=== PATIENT | male | born 1990 | race Caucasian/White ===

== ENCOUNTER 2018-09-25 10:16 | Outpatient (CLI) | payer BC ==
[2018-09-25 11:04] LABS: #Basophils 0.1 thou/uL (0.0-0.2); #Eosinphils 0.3 thou/uL (0.0-0.7); #Monocytes 0.7 thou/uL (0.11-0.59); #Neutrophils 3.4 thou/uL (1.40-6.50); %Eosinophils 5.3 % (0.0-10.0); %Lymphocytes 30.6 % (21.0-51.0); %Monocytes 10.4 % (0.0-10.0); %Neutrophils 52.6 % (42.0-75.0); Hemoglobin 14.9 g/dL (14.0-18.0); Mean Corpuscular HGB CONC 33.2 g/dL (32.0-36.0); Mean Corpuscular Hemoglobin 29.6 pg (27.0-31.0); Mean Platelet Volume 7.7 fL (7.4-10.4); Platelet Count 273 thou/uL (130-400); RBC Distribution Width 11.5 % (11.5-14.5); Red Blood Cell (RBC) Count 5.05 mill/uL (4.70-6.10); White Blood Cell (WBC) Count 6.5 thou/uL (4.8-10.8)
== END 2018-09-25 10:17 | disposition home or self-care (01) ==
LOC: LABBT 10:16
PROVIDERS: ATTEND Surgery
DX: Z01.812 Encounter for preprocedural laboratory examination (principal); K40.20 Bilateral inguinal hernia, without obstruction or gangrene, not specified as recurrent
CPT/HCPCS: 85025

== ENCOUNTER 2018-09-30 06:09 | Day surgery (SDC) | payer BC ==
[2018-09-25 10:31] VITALS: BMI 28.8
[2018-09-30] MEDS ORDERED: Bupivacaine/Epinephrine 0.25% 30 ML VIAL ONE (06:47)
[2018-09-30] MEDS ORDERED: CEFAZOLIN 2 GM/50 ML BAG ONE (07:15)
--- NOTE | 2018-09-30 07:21 | HP ---
CHIEF COMPLAINT: Bilateral inguinal hernia. HISTORY: This is a 28-year-old male who has been having right groin pain. He had ultrasound showing bilateral inguinal hernia. PAST MEDICAL HISTORY: Otherwise healthy. PAST SURGICAL HISTORY: Lasik. MEDICATIONS: No medications. ALLERGIES: No known drug allergies. SOCIAL HISTORY: No tobacco, occasional alcohol. PHYSICAL EXAMINATION: VITAL SIGNS: Height 74, weight 230, body mass index 29.5, blood pressure 135/93, pulse 64. GENERAL: Well-developed, well-nourished male in no apparent distress. HEENT: Unremarkable. LUNGS: Clear. HEART: Regular rate and rhythm. ABDOMEN: Soft, nontender, good bowel sounds, no masses. He has bilateral inguinal hernias. EXTREMITIES: Good pulses. No pedal edema. ASSESSMENT: Bilateral inguinal hernias. PLAN: Laparoscopic robotic assisted bilateral inguinal hernia repair with mesh. CONSENT: I have discussed the planned procedure as well as risk of bleeding, infection, recurrence. He understands and gives informed consent.
[2018-09-30] MEDS ORDERED: Fentanyl 250 MCG/5 ML VIAL ONE (07:27)
[2018-09-30] MEDS ORDERED: Midazolam HCl 2 mg/2 ml Vial ONE (07:27)
[2018-09-30] MEDS ORDERED: Fentanyl 100 MCG/2 ML VIAL ONE ×2 (09:51→10:36)
--- NOTE | 2018-09-30 10:33 | OP ---
DATE OF SERVICE: 09/30/2018 PREOPERATIVE DIAGNOSIS: Bilateral inguinal hernia. SURGEON: Romeo Umaña M.D. PROCEDURE PERFORMED: Laparoscopic robotic assisted bilateral inguinal hernia repair with mesh. INDICATIONS: A 28-year-old male who was having groin pain, had a scan that showed bilateral inguinal hernias, found to have what appeared to be bilateral inguinal hernias on exam. FINDINGS: Bilateral inguinal hernias. PROCEDURE: After informed consent was obtained, the patient was taken to the operating room and give n general endotracheal anesthesia, placed in the supine position. The abdomen was prepped and draped in usual fashion. Local anesthesia infiltrated subcutaneously and deep. A supraumbilical incision was performed. The subcu divided sharply. The fascia grasped and an incision made. Digital palpati on revealed no local adhesions. A blunt 12 mm trocar inserted. Pneumoperitoneum was created to a pr essure of 15 mmHg. A 30 degree laparoscope inserted under direct vision. Under direct vision, two 8 mm ports were placed just lateral to the rectus muscle bilateral. The patient then placed in [place] position and the robot was docked. I went to the console and started on the left side, the p eritoneum was opened from median umbilical ligament laterally and a subperitoneal plane developed usi ng blunt and sharp dissection. The spermatic cord and vessels were dissected out. A small indirect hernia was reduced. A medium mesh was inserted and placed into its pocket. Then the right side was approached. Again, the peritoneum was opened from median umbilical ligament laterally. A subperiton eal plane developed. The hernia was dissected out and the indirect sac was reduced. The left-sided mesh was then inserted into the pocket and using a 2-0 silk suture was secured to the pubic tubercle intracorporeally. Then the mesh was attached to the anterior abdominal wall just medial to the epiga stric vessel with a 2-0 silk suture. The left side was also sutured to the pubic tubercle with a 2-0 silk suture then to the abdominal wall with a silk anteriorly. Then the peritoneum was closed later al to medial with a 2-0 V-Loc PDS suture. Hemostasis was assured. Trocars and retractors removed. All needles were retrieved. The fascia closed with interrupted 0 Vicryl suture. The skin closed wit h interrupted 4-0 Rapide. Dermabond applied. The patient tolerated the procedure well and was trans ferred to recovery in good condition. Sponge and needle count verified correct x2.
[2018-09-30] MEDS ORDERED: Promethazine HCl 25 MG/ML VIAL ONE (11:52)
[2018-09-30] MEDS ORDERED: Succinylcholine Chloride 20 MG/ML 10 ml SYRINGE FS ONE (17:14)
[2018-09-30] MEDS ORDERED: Glycopyrrolate 0.2 MG/ML 5 ML SYRINGE ONE (17:14)
[2018-09-30] MEDS ORDERED: Ketorolac Tromethamine 30 MG/ML VIAL ONE (17:14)
[2018-09-30] MEDS ORDERED: Vecuronium 10 MG VIAL ONE (17:14)
[2018-09-30] MEDS ORDERED: PROPOFOL 200 MG/20 ML VIAL ONE (17:14)
[2018-09-30] MEDS ORDERED: Dexamethasone 20 MG/5 ML VIAL ONE (17:14)
[2018-09-30] MEDS ORDERED: Lidocaine 1% PF 5 ML VIAL ONE (17:14)
[2018-09-30] MEDS ORDERED: Ondansetron PF 4 MG/2 ML Vial ONE (17:14)
== END 2018-09-30 13:05 | disposition home or self-care (01) ==
LOC: SDC 06:09
PROVIDERS: ATTEND Surgery
PROC: 0YUA4JZ Supplement Bilateral Inguinal Region with Synthetic Substitute, Percutaneous Endoscopic Approach (ICD-10-PCS; principal; 2018-09-30)
DX: K40.20 Bilateral inguinal hernia, without obstruction or gangrene, not specified as recurrent (principal); Z88.8 Allergy status to other drugs, medicaments and biological substances
CPT/HCPCS: 96374; 96375; 96376; C1781; J1100; J1885; J2001; J2250; J2405; J2550; J2704; J3010

== ENCOUNTER 2018-10-21 13:33 | Outpatient (CLI) | payer BC ==
--- NOTE | 2018-10-21 16:35 | ULT ---
TESTICULAR ULTRASOUND: Date: 10/21/18 HISTORY: Testicular pain. Bilateral hernia repair 3 weeks ago. Right-sided testicular swelling and pain. COMPARISON: None. TECHNIQUE: Colvin scale, color flow, Doppler imaging, and spectral waveform analysis performed of the left and rig ht testicle. FINDINGS: Right hemiscrotum: The right testicle has a homogeneous echotexture. No intratesticular masses. Righ t testicle measures 3.9 x 2.4 x 2.8 cm. Right epididymis has a slightly heterogeneous echotexture and measures 1.2 x 0.9 cm. There is a small amount of fluid in the right hemiscrotum. Left hemiscrotum: The left testicle has a homogeneous echotexture. No testicular masses. Left testic le measures 2.7 x 4.1 x 2.6 cm. Left epididymis has a normal echotexture, measuring 1.2 x 0.9 cm. No significant fluid in the left hemiscrotum. TESTICULAR DOPPLER: Vascular flow to both testicles is symmetric. IMPRESSION: Small right-sided hydrocele. POS: [facility]
== END 2018-10-21 13:34 | disposition home or self-care (01) ==
LOC: BICULT 13:33
PROVIDERS: ATTEND Surgery
DX: N50.819 Testicular pain, unspecified (principal); N43.3 Hydrocele, unspecified
CPT/HCPCS: 76870; 93976